=== PATIENT | male | born 1970 | race Caucasian/White ===

== ENCOUNTER → 2018-06-21 | Outpatient (CLI) | payer BC, OTHER ==
[~2018-06-21] MED LIST: ATEN-104 PO; CIPR500T3 PO; LISI40TA PO; METR500T8 PO
[2018-06-21 09:41] LABS: ALBUMIN 4.1 g/dL (3.4-5.0); ANION GAP 5 mmol/L (5-15); CALCIUM 9.2 mg/dL (8.5-10.1); CHLORIDE 102 mmol/L (98-107)
[2018-06-21 09:44] LABS: ALANINE AMINOTRANSFERASE 32 U/L (12-78); ALKALINE PHOSPHATASE 64 U/L (45-117); BILIRUBIN,TOTAL 0.5 mg/dL (0.2-1.0); CREATININE 1.67 mg/dL (0.7-1.3); TOTAL PROTEIN 8.2 g/dL (6.4-8.2)
== END | disposition home or self-care (01) ==
LOC: STAR 08:41
PROVIDERS: ATTEND Surgery
DX: Z01.818 Encounter for other preprocedural examination (principal); K61.2 Anorectal abscess
CPT/HCPCS: 36415; 80053

== ENCOUNTER 2018-06-25 13:51 | Day surgery (SDC) | payer BC ==
[~2018-06-25] VITALS: Ht 177.8 cm; Wt 120.0 kg
[~2018-06-25 13:51] MED LIST changes: +CEFOTETAN 2 GM ONE; +DEXAMETHASONE 4 MG/ML, 1ML ONE; +GLYCOPYRROLATE 0.2MG/1ML, 5ML ONE; +NEOSTIGMINE 1 MG/ML, 10ML ONE; +ONDANSETRON 2MG/ML, 2ML ONE; +PROPOFOL 10 MG/ML, 20ML ONE; +ROCURONIUM 10MG/ML,5ML ONE; +SUCCINYLCHOLINE 20 MG/ML, 10ML ONE
[2018-06-25] MEDS ORDERED: LACTATED RINGERS 1,000 ML IV SCH (14:01)
[2018-06-25 14:25] VITALS: BP 143/89
[2018-06-25] MEDS ORDERED: LIDOCAINE 4% TOPICAL SOLUTION 50 ML ONE ×2 (14:40→14:50)
[2018-06-25] MEDS ORDERED: SILVER SULF. CRM 1% , 25GM ONE (14:40)
[2018-06-25] MEDS ORDERED: BUPIVACAINE/PF-EPI 0.5% 1:200K ONE (14:41)
[2018-06-25] MEDS ORDERED: FENTANYL PF 250 MCG/5ML ONE (15:17)
[2018-06-25] MEDS ORDERED: MIDAZOLAM 1 MG/ML, 2ML ONE (15:17)
[2018-06-25] MEDS ORDERED: METOCLOPRAMIDE 5 MG/ML, 2ML IV PRN (16:30)
[2018-06-25] MEDS ORDERED: KETOROLAC 30 MG/1 ML IV PRN (16:30)
[2018-06-25] MEDS ORDERED: LABETALOL 5MG/ML, 20ML IV PRN (16:30)
[2018-06-25] MEDS ORDERED: FENTANYL PF 100 MCG/2ML IV PRN (16:30)
[2018-06-25] MEDS ORDERED: OXYcodone 5 MG/5 ML ORAL.SOL UDC PO PRN (16:30)
[2018-06-25] MEDS ORDERED: hydrALAzine 20 MG/ML, 1ML IV PRN (16:30)
[2018-06-25] MEDS ORDERED: ALBUTEROL SULFATE 2.5 MG/3 ML NPPB PRN (16:30)
[2018-06-25] MEDS ORDERED: PROMETHAZINE 25 MG/ML, 1ML IV PRN (16:30)
[2018-06-25] MEDS ORDERED: MEPERIDINE/PF 25MG/0.5ML IVPush PRN (16:30)
[2018-06-25] MEDS ORDERED: HYDROmorphone 1 MG/ML, 1ML IV PRN (16:30)
[2018-06-25] MEDS ORDERED: ONDANSETRON 2MG/ML, 2ML IVPush PRN (16:30)
[2018-06-25] MEDS ORDERED: FENTANYL PF 100 MCG/2ML ONE (16:32)
[2018-06-25] MEDS ORDERED: OXYcodone 5 MG/5 ML ORAL.SOL UDC ONE (16:32)
== END 2018-06-25 18:30 | disposition home or self-care (01) ==
LOC: OUT 13:51
PROVIDERS: ATTEND Surgery
DX: K60.3 Anal fistula (principal); I10 Essential (primary) hypertension; Z72.89 Other problems related to lifestyle
CPT/HCPCS: 46270; J0330; J1100; J2250; J2405; J2704; J2710; J3010; J3490; J7120; S0074